=== PATIENT | female | born 1980 | race Caucasian/White ===

== ENCOUNTER 2016-08-27 18:10 | Emergency (ER) | payer BC, OTHER ==
[~2016-08-27] VITALS: Ht 172.7 cm; Wt 75.0 kg
[~2016-08-27 18:10] MED LIST changes: -ALDS PO; -AZIT250T94 PO; -LACT1CAP17 PO
[2016-08-27 18:15] VITALS: Ht 172.7 cm; Wt 75.0 kg
[2016-08-27] MEDS ORDERED: SOD CHLORIDE 0.9% 1,000 ML IV STA (18:31)
[2016-08-27 18:51] LABS: ADD SCAN DIFF NO
[2016-08-27 18:54] LABS: BASOPHILS % 0.3 % (0.0-2.0); EOSINOPHILS # 0.1 10^3/ul (0.0-0.5); EOSINOPHILS % 0.9 % (0.0-7.0); HEMATOCRIT 36.1 % (37.0-47.0); LYMPHOCYTES # 1.9 10^3/ul (0.8-2.9); LYMPHOCYTES % 20.9 % (15.0-51.0); MEAN CORPUSCULAR HEMOGLOBIN 31.3 pg (29.0-33.0); MEAN CORPUSCULAR HGB CONC 33.2 g/dl (32.0-37.0); MEAN CORPUSCULAR VOLUME 94.3 fl (82.0-101.0); MEAN PLATELET VOLUME 9.9 fl (7.4-10.4); MONOCYTE # 0.5 10^3/ul (0.3-0.9); NEUTROPHIL # 6.4 10^3/ul (1.6-7.5); NEUTROPHILS % 71.6 % (39.0-77.0); PLATELET COUNT 564 10^3/UL (140-415); RED BLOOD COUNT 3.83 10^6/ul (4.20-5.40); RED CELL DISTRIBUTION WIDTH 12.9 % (11.5-14.5)
[2016-08-27] MEDS ORDERED: LACT1CAP17 PO (18:59)
[2016-08-27] MEDS ORDERED: ONDANSETRON 4 MG INJ IV PRN (19:00)
[2016-08-27] MEDS ORDERED: ACETAMINOPHEN 325 MG TAB PO PRN (19:00)
[2016-08-27 19:04] LABS: INR 0.91; PROTIME 12.2 Sec (12.2-14.2)
[2016-08-27] MEDS ORDERED: ONDANSETRON 4 MG INJ IV STA (19:04)
[2016-08-27] MEDS ORDERED: morphine 4 MG/ML VIAL IV STA (19:04)
[2016-08-27 19:14] LABS: ADD UMIC YES; URINE BILIRUBIN (Dip) NEGATIVE (NEGATIVE); URINE BLOOD (Dip) TRACE (NEGATIVE); URINE COLOR LT. YELLOW (YELLOW); URINE GLUCOSE (Dip) NEGATIVE (NEGATIVE); URINE KETONES (Dip) 15 (NEGATIVE); URINE LEUKOCYTE ESTERASE (Dip) NEGATIVE (NEGATIVE); URINE NITRITE (Dip) NEGATIVE (NEGATIVE); URINE TOTAL PROTEIN (Dip) NEGATIVE (NEGATIVE); URINE UROBILINOGEN (Dip) 0.2 E.U./dL (0.1-1.0)
[2016-08-27 19:30] LABS: SQUAMOUS EPITHELIAL CELL,UR FEW; URINE RBCS NONE SEEN /HPF (0)
[2016-08-27] MEDS ORDERED: LORAZEPAM 2 MG INJ IV ONE (19:30)
--- NOTE | 2016-08-27 19:38 | RADRPT ---
PROCEDURE: XR Chest. CLINICAL INDICATION: Abdominal pain for TECHNIQUE: PA and Lateral views of the chest were obtained. COMPARISON: None. FINDINGS: The soft tissues are normal. The bony elements are normal. The left ventricle is borderline enlarg ed. The cardiomediastinal silhouette and hilar structures are normal. The pulmonary vasculature is normal. There is a left-sided aorta. There is a left lower lobe infiltrate. The infiltrate suspected in the superior segment the right lower lobe. This would have to be confirmed with a lateral view. The costophrenic angles are normal. IMPRESSION: 1. Left lower lobe pneumonia with possible additional infiltrate in the superior segment of the righ t lower lobe. RPTAT:AAJJ Physician Cele Date Time Electronically viewed and signed by Zan Witt Physician on 08/27/2016 19:37 JM/
[2016-08-27 19:52] LABS: ALANINE AMINOTRANSFERASE 35 IU/L (13-69); ALBUMIN 4.7 g/dl (3.3-4.9); ALBUMIN/GLOBULIN RATIO 1.34; ALKALINE PHOSPHATASE 93 IU/L (42-121); ANION GAP 13 (8-16); ASPARTATE AMINO TRANSFERASE 28 IU/L (15-46); BILIRUBIN,INDIRECT 0.4 mg/dl (0-1.1); BILIRUBIN,TOTAL 0.4 mg/dl (0.2-1.3); BLOOD UREA NITROGEN 9 mg/dl (7-20); CALCIUM 9.6 mg/dl (8.4-10.2); CARBON DIOXIDE 28 mmol/L (21-31); CHLORIDE 102 mmol/L (97-110); CREATININE 0.67 mg/dl (0.44-1.00); GLUCOSE 98 mg/dl (70-220); POTASSIUM 4.6 mmol/L (3.5-5.1); SODIUM 138 mmol/L (135-144); TOTAL PROTEIN 8.2 g/dl (6.1-8.1)
[2016-08-27] MEDS ORDERED: ALDS PO (19:53)
[2016-08-27 20:03] LABS: TROPONIN-I < 0.012 ng/ml (0.00-0.12)
--- NOTE | 2016-08-27 20:41 | HP ---
Date/Time of Note Date/Time of Note DATE: 08/27/16 TIME: 20:13 Assessment/Plan VTE Prophylaxis VTE Prophylaxis Intervention: ambulation Lines/Catheters IV [facility] Peripheral IV Urinary Cath still in place: No Assessment/Plan Chief Complaint/Hosp Course Lower abdominal pain without peritoneal signs in the setting of pelvic U/S with normal sized ovaries, no cysts/masses and no visualized flow to R ovary. Problems: Assessment/Plan Based on U/S, torsion is high on the differential, however history (description and course of pain), clinical picture and exam do not support this diagnosis. Possible torsion is intermittent and thus will admit for serial abdominal examinations and repeat U/S in several hours to reevaluate pelvis and adnexal region. Pain may also be 2/2 what may have been OHSS or musculoskeletal pain from recent N/V. Plan discussed with pt at length, as well as her sister (an anesthesiologist) by phone. Pt aware that should her clinical picture change or imaging suggest torsion, would proceed to OR urgently for diagnostic laparoscopy , possible detorsion, possible oophorectomy, salpingoophorectomy, exploratory laparotomy and other indicated procedures. Pt counseled on risks of surgery including pain, infection, damage to nearby organs/structures and bleeding possibly requiring a blood transfusion. Risks of blood transfusion- namely infectious risks and transfusion reaction risks- were discussed and pt verbalized understanding of all of the above. The patient had an opportunity to have all of her questions answered and written consent for the procedure and for transfusion of blood products was obtained. HPI/ROS Admit Date/Time Admit Date/Time Hx of Present Illness CLINICAL ASSISTANT PROFESSOR Admission Pt is a 36yo G0 w/LMP 08/21/16 who presents with progressively increasing lower abdominal achiness x2 weeks. Pt states she recently had egg retrieval for egg freezing the week of 08/10-. Following the procedure, she reports having severe bloating, SOB and a heavy feeling and was seen by her infertility specialist who had performed the procedure and reassured. Pt states she was told she should wait until her period and will feel better thereafter. Because of the discomfort, the patient was prescribed Tylenol with codeine last week which she had been taking without much relief of the discomfort and with constipation. Three days ago the pt reports being seen again for severe 10/10 discomfort in her lower abdomen and was reassured. At that time she had N/V. Today pt denies N /V although does c/o ongoing bilateral crampy "period-like" LAP R>L. Denies vaginal bleeding or abnormal vaginal discharge. In the ED, pt has received IV fluids and Ativan. No pain meds have been given. PMHx: anxiety, gastric ulcers with bleeding 2yrs ago PSHx: none FHx: Father (now ) DM, Cirrhosis SHx: Social EtOH, Occasional MJ, denies IDU or Tobacco Meds: Paxil, Spironolactone All: NKDA OB Hx: G0 CLINICAL ASSISTANT PROFESSOR Hx: Partnered and sexually active with male. 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 CLINICAL INDICATION: Pelvic pain, right lower quadrant TECHNIQUE: Multiple sonographic images of the pelvis were obtained utilizing a transabdominal and endovaginal technique. The images were reviewed on a PACS workstation. COMPARISON: None available FINDINGS: Uterus: Normal in size, contour and echogenicity with no evidence for myometrial masses. Size is estimated at a pleural 1 x 5.4 x 4.4 cm. Cervix: No abnormalities of significance are seen. Endometrium: Normal in thickness; 6.8 mm. Right ovary / adnexa: Normal in size estimated at 2.6 x 1.8 x 2.2 cm. No normal blood flow within the ovary is seen on Doppler interrogation. In addition, there is suggestion of distension of the right fallopian tube concerning for hydrosalpinx, echogenic material cannot exclude hematosalpinx. Left ovary/adnexa: Normal in size estimated at 4.3 x 3.2 x 2.7 cm. No evidence for solid masses, normal blood flow on Doppler interrogation. Cul-de-sac: No evidence of free fluid. RPTAT:HJJR IMPRESSION: 1. Lack of blood flow within the right ovary raises concern for ovarian torsion. 2. Echogenic material within the right fallopian tube unable to exclude hydrosalpinx or hematosalpinx. 3. Critical results are discussed by telephone with emergency room physician Dr. Rae at 18:34 PMH/Family/Social Past Medical History Medical History: other (as per HPI) Past Surgical History Past Surgical Hx: no surgical history Family History Significant Family History: diabetes Social History Alcohol Use: occasionally Smoking Status: Unknown if ever smoked Drug Use: marijuana Exam/Review of Systems Vital Signs Vitals Vital Signs Date Time Temp Pulse Resp B/P Pulse Ox O2 Delivery O2 Flow Rate FiO2 08/27/16 18:15 98.0 69 18 152/133 99 Exam Exam Pt appears comfortable, talking, smiling and laughing without e/o distress Constitutional: alert, oriented, No distress Gastrointestinal: soft, tender (mild to mod TTP in suprapubic region), No distended, No firm, No rebound or guarding, No surgical scars Genitourinary - Female: nl adnexae, nl external genitalia, other (no adnexal TTP bilaterally), No CMT, No uterus (tenderness) Musculoskeletal: nl extremities to inspection, range of motion (wnl UE and LE bilaterally), No swelling Labs Result Diagram: 08/27/16182808/27/161828 NEHA ROMEO MD Aug 27, 2016 20:23
[2016-08-27] MEDS ORDERED: SOD CHLORIDE 0.9% 1,000 ML IV SCH (21:00)
--- NOTE | 2016-08-27 21:23 | ERA ---
ER Documentation Chief Complaint Date/Time DATE: 08/27/16 TIME: 21:21 Chief Complaint LOWER ABD PAIN X 12 DAYS. RECENT IUD REMOVAL. SENT BY US OVARIAN TORSION HPI Patient is a 36-year-old female with anxiety who presents with right-sided ovarian torsion. The patient was having an outpatient ultrasound done at the hospital and my prepress technician called me and said the patient has an ovarian torsion. The patient said that 12 days ago she had egg harvesting done for in vitro fertilization. She had right-sided pelvic pain since the procedure which was done at [facility]. She has difficulty with urination. She said that she tried Tylenol with codeine. She feels bloated. Upon review of old medical records the patient one previous visit to the ER in 2009. ROS All systems reviewed and are negative except as per history of present illness. Medications Home Meds Reported Medications Spironolactone* (Aldactone*) 5 Mg/Ml (COMPOUNDED) Susp, 5 MG PO DAILY for 30 Days, BOTTLE (COMPOUNDED) 08/27/16 Lactobac Cmb #3/Fos/Pantethine (PROBIOTIC & ACIDOPHILUS CAP) 1 Each Capsule, 1 EACH PO, CAP 08/27/16 Paroxetine Hcl* (Paxil*) 20 Mg Tablet, 20 MG PO DAILY 05/26/09 Discontinued Reported Medications [Ocp] No Conflict Check 05/26/09 Allergies Allergies: Coded Allergies: No Known Allergy (Verified , 08/27/16) PMhx/Soc History of Surgery: Yes (R WRIST SX) Hx Neurological Disorder: No Hx Respiratory Disorders: No Hx Cardiac Disorders: No Hx Miscellaneous Medical Probl: No Hx Alcohol Use: Yes (occasional) Hx Substance Use: No Hx Tobacco Use: No Smoking Status: Unknown if ever smoked FmHx Family History: diabetes Physical Exam Vitals Vital Signs Date Time Temp Pulse Resp B/P Pulse Ox O2 Delivery O2 Flow Rate FiO2 08/27/16 18:15 98.0 69 18 152/133 99 Physical Exam Const: No acute distress Head: Atraumatic Eyes: Normal Conjunctiva ENT: Normal External Ears, Nose and Mouth. Neck: Full range of motion..~ No meningismus. Resp: Clear to auscultation bilaterally Cardio: Regular rate and rhythm, no murmurs Abd: Soft, mild right lower quadrant tenderness to palpation without rebound or guarding Skin: No petechiae or rashes Back: No midline or flank tenderness Ext: No cyanosis, or edema Neur: Awake and alert Psych: Normal Mood and Affect Result Diagram: 08/27/16182808/27/161828 Results 24 hrs Laboratory Tests Test 08/27/16 18:29 White Blood Count 9.010^3/ul Red Blood Count 3.8310^6/ul Hemoglobin 12.0g/dl Hematocrit 36.1% Mean Corpuscular Volume 94.3fl Mean Corpuscular Hemoglobin 31.3pg Mean Corpuscular Hemoglobin Concent 33.2g/dl Red Cell Distribution Width 12.9% Platelet Count 64847^3/UL Mean Platelet Volume 9.9fl Neutrophils % 71.6% Lymphocytes % 20.9% Monocytes % 6.0% Eosinophils % 0.9% Basophils % 0.3% Nucleated Red Blood Cells % 0.0/100WBC Neutrophils # 6.410^3/ul Lymphocytes # 1.910^3/ul Monocytes # 0.510^3/ul Eosinophils # 0.110^3/ul Basophils # 0.010^3/ul Nucleated Red Blood Cells # 0.010^3/ul Prothrombin Time 12.2Sec Prothrombin Time Ratio 1.0 INR International Normalized Ratio 0.91 Activated Partial Thromboplast Time 27.0Sec Urine Color LT. YELLOW Urine Clarity CLEAR Urine pH 7.0 Urine Specific [place] 1.015 Urine Ketones 15 Urine Nitrite NEGATIVE Urine Bilirubin NEGATIVE Urine Urobilinogen 0.2 E.U./dL Urine Leukocyte Esterase NEGATIVE Urine Microscopic RBC NONE SEEN/HPF Urine Microscopic WBC 0-2/HPF Urine Squamous Epithelial Cells FEW Urine Hemoglobin TRACE Urine Glucose NEGATIVE% Urine Total Protein NEGATIVE Sodium Level 138mmol/L Potassium Level 4.6mmol/L Chloride Level 102mmol/L Carbon Dioxide Level 28mmol/L Anion Gap 13 Blood Urea Nitrogen 9mg/dl Creatinine 0.67mg/dl Glucose Level 98mg/dl Calcium Level 9.6mg/dl Total Bilirubin 0.4mg/dl Direct Bilirubin 0.00mg/dl Indirect Bilirubin 0.4mg/dl Aspartate Amino Transf (AST/SGOT) 28IU/L Alanine Aminotransferase (ALT/SGPT) 35IU/L Alkaline Phosphatase 93IU/L Troponin I < 0.012ng/ml Total Protein 8.2g/dl Albumin 4.7g/dl Globulin 3.50g/dl Albumin/Globulin Ratio 1.34 Lipase 108U/L Current Medications Medications (Trade) Dose Ordered Sig/Vahid Route PRN Reason Start Time Stop Time Status Last Admin Dose Admin Sodium Chloride (NS) 1,000 ml @ 1,000 mls/hr Q1H STAT IV 08/27/16 18:31 08/27/16 19:30 DC 08/27/16 19:04 Ondansetron HCl (Zofran Inj) 4 mg BRIDGE ORDER PRN IV NAUSEA AND/OR VOMITING 08/27/16 19:00 08/28/16 18:59 Acetaminophen (Tylenol Tab) 650 mg ER BRIDGE PRN PO MILD PAIN/FEVER 08/27/16 19:00 08/28/16 18:59 Morphine Sulfate (morphine) 4 mg ONCE STAT IV 08/27/16 19:04 08/27/16 19:05 DC Ondansetron HCl (Zofran Inj) 4 mg ONCE STAT IV 08/27/16 19:04 08/27/16 19:05 DC Lorazepam 0.5 mg 0.5 mg ONCE ONCE IV 08/27/16 19:30 08/27/16 19:31 DC 08/27/16 19:15 Sodium Chloride (NS) 1,000 ml @ 125 mls/hr Q8H IV 08/27/16 21:00 Procedures/MDM Ultrasound shows ovarian torsion per radiology. EKG read by me: Rate/Rhythm: Regular rate and rhythm at a normal rate Intervals: Normal Impression: No evidence of ischemia or arrhythmia PROCEDURE: XR Chest. CLINICAL INDICATION: Abdominal pain for TECHNIQUE: PA and Lateral views of the chest were obtained. COMPARISON: None. FINDINGS: The soft tissues are normal. The bony elements are normal. The left ventricle is borderline enlarged. The cardiomediastinal silhouette and hilar structures are normal. The pulmonary vasculature is normal. There is a left-sided aorta. There is a left lower lobe infiltrate. The infiltrate suspected in the superior segment the right lower lobe. This would have to be confirmed with a lateral view. The costophrenic angles are normal. IMPRESSION: 1. Left lower lobe pneumonia with possible additional infiltrate in the superior segment of the right lower lobe. RPTAT:AAJJ Physician Cele Date Time Electronically viewed and signed by Zan Witt Physician on 08/27/2016 19:37 Patient is a 36-year-old female with anxiety who presents with a possible right ovarian torsion. I spoke with Dr. Jones immediately when I knew the results of the ultrasound. Dr. Looney was actually the OB doctor who came to the bedside to see the patient and feels like this may not be a true torsion and has ordered a repeat ultrasound within a few hours. The patient will be admitted to the OB team. I believe admission to medical surgical bed is appropriate. X-ray shows a pneumonia but she has no symptoms consistent with pneumonia at this time and I will hold off on antibiotics for now. Critical Care: Time: 35 minutes excluding all billable procedures. Treatments/Evaluations: Close monitoring and treatment of unstable vital signs, cardiorespiratory, and neurologic status, while maintaining tight balance of fluid, respiratory, and cardiac interventions. Departure Diagnosis: Primary Impression: Ovarian torsion Condition: NADIA Todd MD Aug 27, 2016 21:23
[2016-08-27] MEDS ORDERED: AZIT250T94 PO (22:28)
[2016-08-27] MEDS ORDERED: AZITHROMYCIN 250 MG TAB PO ONE (22:30)
[2016-08-27 22:46] VITALS: BP 118/98; PULSE 72; RESP 18
--- NOTE | 2016-08-27 23:54 | RADRPT ---
PROCEDURE: ULTRASOUND PELVIS August 27, 2016 at 10:18 p.m. CLINICAL INDICATION: 36-year-old female with right-sided pelvic pain. This is a follow-up examinat ion. TECHNIQUE: Multiple sonographic images of the pelvis were obtained utilizing a transabdominal and endovaginal technique. The images were reviewed on a PACS workstation. COMPARISON: Ultrasound pelvis August 27, 2016 at 05:31 p.m. FINDINGS: The uterus is visualized and measures 8.2 x 4.6 x 4 point a cm. The endometrial echo complex is with in normal limits and measures 7.2 mm. There is no evidence for free fluid. The right ovary has a nor mal echotexture and measures 4.4 x 2.3 x 3.9 cm. There is a probable right ovarian hemorrhagic cyst measuring 2.2 x 1.6 x 2.4 cm. There is a echogenic dilated right adnexal tubular structure again miguel ntified. The left ovary has a normal echotexture and measures 3.5 x 2.8 x 2.8 cm. There is flow miguel ntified within the ovaries bilaterally. IMPRESSION: 1. Persistent echogenic right adnexal tubular structure as previously identified. A pyosalpinx or h ematosalpinx could have this appearance. Clinical correlation is necessary. 2. Probable right ovarian hemorrhagic cyst. 3. Right ovarian flow is identified on the current examination. .Kaden Hanley MD, Date Time Electronically viewed and signed by .Kaden Hanley MD, on 08/27/2016 23:54 .M/
== END 2016-08-27 22:48 | disposition home or self-care (01) ==
LOC: E/R 18:10
DX: N83.519 Torsion of ovary and ovarian pedicle, unspecified side (principal); R10.31 Right lower quadrant pain
CPT/HCPCS: 36415; 71010; 76830; 80053; 81001; 83690; 84484; 85025; 85610; 85730; 93005; 96374; 96375; 99291; J2060; J2270; J2405; J7030; 81003

== ENCOUNTER → 2016-08-27 | Outpatient (CLI) | payer BC, OTHER ==
[~2016-08-27] MED LIST: ALDS PO; AZIT250T94 PO; LACT1CAP17 PO; OCP; PARO20TA58 PO
--- NOTE | 2016-08-27 18:30 | RADRPT ---
PROCEDURE: US right upper quadrant CLINICAL INDICATION: Abdominal pain, right upper quadrant TECHNIQUE: Multiple real-time images were acquired of the patient's right upper abdomen utilizing a high resolution transducer. COMPARISON: None available FINDINGS: Liver: Normal in size, contour and echogenicity. Normal directional blood flow is seen within the p atent main portal vein. The maximum dimension estimated at 16.9 cm . Gallbladder: Unremarkable without sludge or gallstones, the gallbladder slightly contracted. No so nographic Anton's sign is reported. Common bile duct: Normal; 2.2 mm. There is no evidence for choledocholithiasis. Right Kidney: Normal; maximum length measured at approximately 10.7 cm. Pancreas: Visualized portions are normal. The tail is partially obscured by bowel gas. RPTAT:HJJR IMPRESSION: Unremarkable right upper quadrant ultrasound. Physician Jorge Date Time Electronically viewed and signed by Physician Jorge on 08/27/2016 18:30 /
--- NOTE | 2016-08-27 18:35 | RADRPT ---
PROCEDURE: US Pelvis. CLINICAL INDICATION: Pelvic pain, right lower quadrant TECHNIQUE: Multiple sonographic images of the pelvis were obtained utilizing a transabdominal and endovaginal technique. The images were reviewed on a PACS workstation. COMPARISON: None available FINDINGS: Uterus: Normal in size, contour and echogenicity with no evidence for myometrial masses. Size is est imated at a pleural 1 x 5.4 x 4.4 cm. Cervix: No abnormalities of significance are seen. Endometrium: Normal in thickness; 6.8 mm. Right ovary / adnexa: Normal in size estimated at 2.6 x 1.8 x 2.2 cm. No normal blood flow within the ovary is seen on Doppler interrogation. In addition, there is suggestion of distension of the r ight fallopian tube concerning for hydrosalpinx, echogenic material cannot exclude hematosalpinx. Left ovary/adnexa: Normal in size estimated at 4.3 x 3.2 x 2.7 cm. No evidence for solid masses, no rmal blood flow on Doppler interrogation. Cul-de-sac: No evidence of free fluid. RPTAT:HJJR IMPRESSION: 1. Lack of blood flow within the right ovary raises concern for ovarian torsion. 2. Echogenic material within the right fallopian tube unable to exclude hydrosalpinx or hematosalpi nx. 3. Critical results are discussed by telephone with emergency room physician Dr. Rae at 18:34 Physician Jorge Date Time Electronically viewed and signed by Physician Jorge on 08/27/2016 18:34 JR/
== END | disposition home or self-care (01) ==
LOC: U/S 16:31
PROVIDERS: ATTEND Internal Medicine
DX: R10.30 Lower abdominal pain, unspecified (principal); R10.11 Right upper quadrant pain; R10.2 Pelvic and perineal pain
CPT/HCPCS: 76705; 76830; 76856

== ENCOUNTER 2016-09-30 12:23 | Emergency (ER) | payer BC ==
[~2016-09-30] VITALS: Ht 162.6 cm; Wt 78.0 kg
[~2016-09-30 12:23] MED LIST changes: +ALDS PO; +AZIT250T94 PO; +LACT1CAP17 PO; -OCP
[2016-09-30 12:25] VITALS: Ht 162.6 cm; Wt 78.0 kg
[2016-09-30] MEDS ORDERED: IBUPROFEN 800 MG TAB PO ONE (14:00)
--- NOTE | 2016-09-30 14:48 | RADRPT ---
PROCEDURE: XR LEFT WRIST. CLINICAL INDICATION: Trauma, fall with pain. TECHNIQUE: Three views of the left wrist were obtained. COMPARISON: No prior studies are available for comparison. FINDINGS: There is no evidence for fracture, subluxation, or dislocation. Bones are well aligned. No bone de structive change or erosive change identified. No radiopaque foreign body identified.. IMPRESSION: 1. Unremarkable left wrist x-ray series. 2. No fracture seen. RPTAT: XX .Zhao Field MD, Date Time Electronically viewed and signed by .Zhao Field MD, on 09/30/2016 14:47 .T/
--- NOTE | 2016-09-30 14:49 | RADRPT ---
PROCEDURE: XR LEFT FOREARM. CLINICAL INDICATION: Fall. Left forearm pain. TECHNIQUE: AP and lateral views of the left forearm were obtained. COMPARISON: No prior studies are available for comparison. FINDINGS: There is normal mineralization and alignment. No fracture or osseous lesion is identified. There are normal joints without evidence of arthritis or effusion. The soft tissues are unremarkable. IMPRESSION: 1. Unremarkable left forearm x-ray series. RPTAT: XX .Zhao Field MD, MD Date Time Electronically viewed and signed by .Zhao Field MD, on 09/30/2016 14:48 .T/
--- NOTE | 2016-09-30 14:52 | ERD ---
ER Documentation Chief Complaint Date/Time DATE: 09/30/16 TIME: 14:50 Chief Complaint right wrist pain, fell yesterday HPI This a 36-year-old female who presents the emergency department today complaining of left wrist pain. Patient states that yesterday she was at a pool democr[employer] and she was leaving and running across the street when she slipped and fell. States that she has a previous fracture approximately 20 years ago. States she took ibuprofen last night. Denies any fevers or chills. ROS All systems reviewed and are negative except as per history of present illness. Medications Home Meds Active Scripts Naproxen* (Naprosyn*) 500 Mg Tablet, 500 MG PO BID Y for PAIN AND/OR INFLAMMATION, #30 TAB Prov:HECTOR LEMON PA-C 09/30/16 Tramadol HCl (Tramadol HCl) 50 Mg Tablet, 50 MG PO Q4 Y for PAIN, #20 TAB Prov:HECTOR LEMON PA-C 09/30/16 Azithromycin* (Zithromax*) 250 Mg Tablet, 250 MG PO DAILY for 4 Days, TAB Prov:NADIA HA MD 08/27/16 Reported Medications Spironolactone* (Aldactone*) 5 Mg/Ml (COMPOUNDED) Susp, 5 MG PO DAILY for 30 Days, BOTTLE (COMPOUNDED) 08/27/16 Lactobac Cmb #3/Fos/Pantethine (PROBIOTIC & ACIDOPHILUS CAP) 1 Each Capsule, 1 EACH PO, CAP 08/27/16 Paroxetine Hcl* (Paxil*) 20 Mg Tablet, 20 MG PO DAILY 05/26/09 Allergies Allergies: Coded Allergies: No Known Allergy (Verified , 08/27/16) PMhx/Soc History of Surgery: Yes (R WRIST SX) Hx Neurological Disorder: No Hx Respiratory Disorders: No Hx Cardiac Disorders: No Hx Miscellaneous Medical Probl: No Hx Alcohol Use: Yes (occasional) Hx Substance Use: No Hx Tobacco Use: No Physical Exam Vitals Vital Signs Date Time Temp Pulse Resp B/P Pulse Ox O2 Delivery O2 Flow Rate FiO2 09/30/16 12:25 98.1 72 18 143/89 99 Physical Exam Const: No acute distress Head: Atraumatic Eyes: Normal Conjunctiva ENT: Normal External Ears, Nose and Mouth. Neck: Full range of motion..~ No meningismus. Resp: Clear to auscultation bilaterally Cardio: Regular rate and rhythm, no murmurs Skin: No petechiae or rashes MSK: Left arm with no obvious deformity. No effusion. Small area of ecchymosis over radial aspect of left forearm. Pain with pronation and supination and flexion and extension at wrist. Full active range of motion at elbow. Pulses 2+. Distal neurovascularly intact Neur: Awake and alert Psych: Normal Mood and Affect Results 24 hrs Current Medications Medications (Trade) Dose Ordered Sig/Vahid Route PRN Reason Start Time Stop Time Status Last Admin Dose Admin Ibuprofen (Motrin) 800 mg ONCE ONCE PO 09/30/16 14:00 09/30/16 14:01 DC 09/30/16 13:45 DIAGNOSTIC IMAGING REPORT Patient: AMY BUITRAGO : 1980 Age: 36 Sex: F MR #: [id number] DOS: 09/30/16 0000 Ordering MD: HECTOR LEMON PA-C Location: [facility] Room/Bed: PROCEDURE: XR LEFT WRIST. CLINICAL INDICATION: Trauma, fall with pain. TECHNIQUE: Three views of the left wrist were obtained. COMPARISON: No prior studies are available for comparison. FINDINGS: There is no evidence for fracture, subluxation, or dislocation. Bones are well aligned. No bone destructive change or erosive change identified. No radiopaque foreign body identified.. IMPRESSION: 1. Unremarkable left wrist x-ray series. 2. No fracture seen. RPTAT: XX .Zhao Field MD, MD Date Time Electronically viewed and signed by .Zhao Field MD, MD on 09/30/2016 14: 47 .T/ CC: HECTOR LEMON PA-C DIAGNOSTIC IMAGING REPORT Patient: AMY BUITRAGO : 1980 Age: 36 Sex: F MR #: [id number] DOS: 09/30/16 0000 Ordering MD: HECTOR LEMON PA-C Location: [facility] Room/Bed: PROCEDURE: XR LEFT FOREARM. CLINICAL INDICATION: Fall. Left forearm pain. TECHNIQUE: AP and lateral views of the left forearm were obtained. COMPARISON: No prior studies are available for comparison. FINDINGS: There is normal mineralization and alignment. No fracture or osseous lesion is identified. There are normal joints without evidence of arthritis or effusion. The soft tissues are unremarkable. IMPRESSION: 1. Unremarkable left forearm x-ray series. RPTAT: XX .Zhao Field MD, MD Date Time Electronically viewed and signed by .Zhao Field MD, MD on 09/30/2016 14: 48 .T/ CC: HECTOR LEMON PA-C Procedures/MDM This a 36-year-old female presents to the emergency department today complaining of left wrist and forearm pain after mechanical fall yesterday. Patient did have a history of previous fracture possibly 20 years ago. Given the trauma did obtain images per Per the radiology report images of the Left forearm and wrist are unremarkable. There is no acute fracture subluxation or dislocation. Bones are well aligned. Soft tissues are unremarkable. Suspicion for acute fracture dislocation. Low suspicion for septic joint or gout. Patient is afebrile and otherwise well-appearing. Patient symptoms at this time is consistent with sprain versus strain versus contusion. Patient was given Motrin here in the emergency department as she was driving herself. She will be given a short course of tramadol, Naprosyn as well as a Velcro wrist splint to wear for comfort. At this time the patient is stable for discharge and outpatient management. Patient should follow up with their PCP in the next 1-2 days. They may return to the emergency department sooner for any persistent or worsening of symptoms. Patient understood and agreed with the plan. Departure Diagnosis: Primary Impression: Wrist injury Encounter type: initial encounter Laterality: left Qualified Code: S69.92XA - Wrist injury, left, initial encounter Condition: Fair HECTOR LEMON PA-C September 30, 2016 14:52
[2016-09-30] MEDS ORDERED: NAPR-260 PO (15:00)
[2016-09-30] MEDS ORDERED: TRAM50TA2 PO (15:00)
== END 2016-09-30 15:10 | disposition home or self-care (01) ==
LOC: FTE 12:23
DX: S69.92XA Unspecified injury of left wrist, hand and finger(s), initial encounter (principal); W01.0XXA Fall on same level from slipping, tripping and stumbling without subsequent striking against object, initial encounter; Y92.410 Unspecified street and highway as the place of occurrence of the external cause
CPT/HCPCS: 73090